=== PATIENT | female | born 2000 | race Caucasian/White ===

== ENCOUNTER 2022-09-16 18:35 | Emergency (ER) | payer MEDICAID ==
[~2022-09-16] VITALS: Ht 160 cm; Wt 56.8 kg
[2022-09-16 18:59] VITALS: BP 136/82
[2022-09-16] MEDS ORDERED: mag hydrox/Alum hydrox/simeth 30ml oral suspension PO ONE (20:15)
[2022-09-16] MEDS ORDERED: LIDOcaine Viscous 15ml cup MM PRN (20:15)
== END 2022-09-16 20:49 | disposition home or self-care (01) ==
LOC: ER 18:36
DX: R13.10 Dysphagia, unspecified (principal)
CPT/HCPCS: 71045; 99283